=== PATIENT | female | born 1960 | race Caucasian/White ===

== ENCOUNTER → 2018-01-31 | Outpatient (CLI) | payer OTHER | END | disposition home or self-care (01) | LOC: RAD 12:31 | DX: M54.2 Cervicalgia (principal); M54.6 Pain in thoracic spine; M54.5 Low back pain ==

== ENCOUNTER → 2018-03-12 | Outpatient (CLI) | payer OTHER | END | disposition home or self-care (01) | LOC: RAD 11:26 | DX: M06.861 Other specified rheumatoid arthritis, right knee (principal); M06.862 Other specified rheumatoid arthritis, left knee; M17.0 Bilateral primary osteoarthritis of knee ==

== ENCOUNTER 2022-03-21 07:08 | Day surgery (SDC) | payer OTHER ==
[~2022-03-21] VITALS: Ht 157.5 cm; Wt 84.8 kg
[~2022-03-21 07:08] MED LIST: ASMANEX HFA13 GM IH; ATORVASTATIN CA80 MG PO; LEXAPRO5 MG PO; RESTORIL30 M1 PO; SINGULAIR 10MG10 MG PO
== END 2022-03-21 22:10 | disposition home or self-care (01) ==
LOC: CIR.AMB 07:08
PROVIDERS: ATTEND Orthopaedic Surgery Hand Surgery
DX: G56.01 Carpal tunnel syndrome, right upper limb (principal); E78.5 Hyperlipidemia, unspecified; J45.909 Unspecified asthma, uncomplicated; R73.03 Prediabetes; E66.9 Obesity, unspecified; E78.00 Pure hypercholesterolemia, unspecified; F41.0 Panic disorder [episodic paroxysmal anxiety]; Z20.822 Contact with and (suspected) exposure to COVID-19